=== PATIENT | female | born 1985 | race Caucasian/White ===

== ENCOUNTER 2022-01-31 19:48 | Emergency (ER) | payer OTHER, MEDICAID, SELFPAY ==
[2022-01-31 19:51] VITALS: BP 108/65; PULSE 108; RESP 20; TEMP 37.3; O2SAT 99
--- NOTE | 2022-01-31 20:02 | ED.GENADULT ---
HPI - General Adult General Time Seen by Provider: 20:02 Date Seen: 01/31/22 Chief complaint: Unspecified Complaint, Adult Stated complaint: SERIOUS HEAD PAIN,LOWER BACK/HIP PAIN Time Seen by Provider: 01/31/22 19:50 Source: patient, family, RN notes reviewed and old records reviewed Mode of arrival: wheelchair Limitations: no limitations History of Present Illness HPI narrative: This 36-year-old female is coming into the ER with symptoms starting this morning. She awoke feeling just really dizzy or lightheaded like she got up too fast but feels that way constantly since then. She has had a severe headache throughout her whole head, goes down into her neck. She also has low back pain and pain into her hips. She states she has not felt any more chilled than she normally does, has felt warm at times. Denies any visual changes, no rash, no cough, no sore throat, states she did not start having any nasal congestion until she had put on her mask here. She denies any abdominal pain, no nausea vomiting or diarrhea, no urinary changes. She has not had any tick bites or been anywhere where she thinks she would have been exposed. She has had no travel. She is unvaccinated for COVID. She did have COVID in August of 2021. There is no associated numbness tingling, incoordination, no motor weakness with this. She has tried Tylenol and ibuprofen today, warm packs, ice packs. Nothing is really given her much relief. Onset (ago): day(s) (Started today) Related Data Home Medications Medication Instructions Recorded Confirmed Tylenol 1,000 mg 01/31/22 clonazepam 01/31/22 ibuprofen 800 mg 01/31/22 phentermine 37.5 mg tablet mg 01/31/22 topiramate 25 mg tablet mg 01/31/22 venlafaxine 150 mg mg PO 01/31/22 capsule,extended release 24 hr Allergies Allergy/AdvReac Type Severity Reaction Status Date / Time acetaminophen [From Vicodin] Allergy itching/hiv Verified 01/31/22 19:55 es hydrocodone [From Vicodin] Allergy itching/hiv Verified 01/31/22 19:55 es Review of Systems Status of ROS: Reports: 10 or more systems reviewed and unremarkable except as noted in History and below PFSH PFSH Social History Smoking Status: Current every day smoker How often do you have a drink containing alcohol: monthly or less AUDIT-C Alcohol total score: 1 Non-prescribed substance use: marijuana (any form) Exam Const: Vital Signs, click to edit/add: Vital Signs - 24 hr 01/31/22 19:51 01/31/22 20:42 Temperature 99.1 F 99.9 F H Pulse Rate [Left P ulse Oximeter] 108 H Respiratory Rate 20 Blood Pressure [Le ft Upper Arm] 108/65 Pulse Oximetry 99 Documenting provider has reviewed patient's vital signs: yes Common normals: no apparent distress, average body habitus, oriented x3, no limitations, healthy appearing and alert General appearance: cooperative and other (Looks like she does not feel well but is certainly not in any distress) Orientation/consciousness: Yes awake Other: Cheeks appear flushed, she feels quite warm, had nursing staff redo an oral temperature and she is 99.9? F. HENMT: Common normals: normocephalic, head/scalp atraumatic, hearing grossly normal bilaterally, external ears normal, EAC's normal, TM's normal bilaterally, external nose normal, nasal mucous membranes and turbinates normal, moist oral mucous membranes, oropharynx normal and dentition normal Head and scalp: normocephalic and atraumatic Nose: external nose normal and nasal mucous membranes and turbinates normal External ear: external ears normal External auditory canal: EAC's normal Tympanic membrane: TM's normal bilaterally Eye: Common normals: PERRL, EOMs intact bilaterally, conjunctivae normal and no scleral icterus Conjunctiva: conjunctiva(e) normal Pupil: PERRL Neck & C-Spine: Common normals: full ROM, no lymphadenopathy, supple, no meningeal signs, no JVD and thyroid normal Thyroid: thyroid normal Resp: Common normals: normal respiratory effort, no retractions, no use of accessory muscles and clear to auscultation bilaterally Auscultation: clear to auscultation bilaterally Cardio: Common normals: no JVD, regular rhythm, S1 normal heart sound, S2 normal heart sound, no gallops, no clicks and no murmurs Rate: tachycardic Rhythm: regular rhythm Heart sounds: S1 normal and S2 normal GI: Common normals: Normal to inspection, nondistended, normoactive bowel sounds present, soft to palpation, non-tender, no hepatosplenomegaly and no masses Palpation: soft and no hepatosplenomegaly Extremity: Common normals: normal to inspection, full ROM, normal capillary refill, no calf tenderness and no pedal edema Neuro: Fowler Coma Scale: document GCS findings Fowler coma scale eye opening: Spontaneous (4) Diaz coma scale verbal response: Orientated (5) Diaz coma scale motor response: Obey commands (6) Fowler coma scale total score: 15 Common normals: oriented x3, CN's II-XII intact bilaterally, moves all extremities, no focal motor deficits and no sensory deficits noted Sensorium/orientation: awake and alert Meningeal signs: no meningeal signs Course Course Hospital Course: Reviewed with patient that I think she has symptoms from a developing infection. My a initial presumption would be that this is viral and possibly even COVID again. We will do a workup pain and look to differentiate viral versus bacterial and see if we can identify a source. I think her headache and her myalgias are part of the developing illness. She has nothing really focal to suggest a source at this point. We will start with lab work, place an IV, a.m. going to give her some IV fluids and give her 15 mg IV Toradol to see if this helps with some of her discomfort. She has no meningeal signs at this point in do not think we need to do any neuro imaging. We will await our labs as well as inflammatory markers, test for COVID and influenza. Besides the Toradol, will re-dose with acetaminophen as it has been awhile since she has taken anything orally. Reevaluation(s) Reevaluation #1: IA had ordered Reglan and Benadryl prior as the initial medicines did not help her at all. She is just starting to receive these. At this time, her COVID has come back positive. I was suspecting this as her white count was low and she had suppressed lymphocytes with this white count. I have reviewed with her that I personally have not found much to help people that are suffering from headaches with COVID. With the initial illness, it just seems like they need time and rest. I would recommend ongoing Tylenol and ibuprofen. Will see if the Reglan and Benadryl help her but I a am skeptical that this will benefit her with a headache from COVID. Time: 21:58 Vital Signs Vital signs: Initial Vital Signs Temperature 99.1 F 01/31/22 19:51 Temperature Source Temporal Artery Scan 01/31/22 19:51 Pulse Rate 108 H 01/31/22 19:51 Respiratory Rate 20 01/31/22 19:51 Blood Pressure 108/65 01/31/22 19:51 Blood Pressure Mean 79 01/31/22 19:51 Blood Pressure Position Sitting 01/31/22 19:51 Pulse Oximetry 99 01/31/22 19:51 Oxygen Delivery Method 01/31/22 19:51 Vital Signs Temperature 99.1 F 01/31/22 19:51 Pulse Rate 108 H 01/31/22 19:51 Respiratory Rate 20 01/31/22 19:51 Blood Pressure 108/65 01/31/22 19:51 Pulse Oximetry 99 01/31/22 19:51 Temperature 99.9 F H 01/31/22 20:42 Pulse Rate 108 H 01/31/22 19:51 Respiratory Rate 20 01/31/22 19:51 Blood Pressure 108/65 01/31/22 19:51 Pulse Oximetry 99 01/31/22 19:51 Medical Decision Making Lab Data Labs: Lab Results 01/31/22 01/31/22 01/31/22 Range/Units 20:30 20:30 20:30 WBC 3.62 L (4.50-11.00) K/uL RBC 4.45 (4.00-5.20) m/uL Hgb 13.2 (12.0-16.0) gm/dL Hct 39.8 (33.0-51.0) % MCV 89 (80-100) fL MCH 30 (26-34) pg MCHC 33 (32-36) gm/dL RDW Coeff of Alicia 13.1 (11.5-15.5) % Plt Count 240 (140-440) K/uL Neut % (Auto) 67.3 (42.0-72.0) % Lymph % (Auto) 10.8 L (20-44) % [place] % (Auto) 20.7 H (0.0-11.0) % Eos % (Auto) 0.3 (0.0-7.0) % Baso % (Auto) 0.6 (0.0-3.0) % Neut # (Auto) 2.40 (1.7-7.0) K/uL Lymph # (Auto) 0.40 L (0.90-2.90) K/uL [place] # (Auto) 0.70 (0.00-0.90) K/UL Eos # (Auto) 0.00 (0.00-0.50) K/uL Baso # (Auto) 0.00 (0.00-0.30) K/uL Abs Immat Gran (auto) 0.01 (0.00-0.30) K/uL ESR 15 (2-20) mm/hr Sodium 134 L (135-149) mmol/L Potassium 3.2 L (3.6-5.1) mmol/L Chloride 103 (96-114) mmol/L Carbon Dioxide 21 (20-32) mmol/L BUN 10 (5-24) mg/dL Creatinine 0.7 (0.5-1.5) mg/dL Estimated Creat Clear 83.84 Estimated GFR 115 ml/min Glucose 92 (60-115) mg/dL Lactate (0.5-1.9) mmol/L Calcium 8.8 (8.4-10.6) mg/dL C-Reactive Protein 3.3 H (0.5-1.0) mg/dL SARS-CoV-2 (PCR) (Negative) Influenza Type A (PCR) (Negative) Influenza Type B (PCR) (Negative) 01/31/22 01/31/22 Range/Units 20:30 20:30 WBC (4.50-11.00) K/uL RBC (4.00-5.20) m/uL Hgb (12.0-16.0) gm/dL Hct (33.0-51.0) % MCV (80-100) fL MCH (26-34) pg MCHC (32-36) gm/dL RDW Coeff of Alicia (11.5-15.5) % Plt Count (140-440) K/uL Neut % (Auto) (42.0-72.0) % Lymph % (Auto) (20-44) % [place] % (Auto) (0.0-11.0) % Eos % (Auto) (0.0-7.0) % Baso % (Auto) (0.0-3.0) % Neut # (Auto) (1.7-7.0) K/uL Lymph # (Auto) (0.90-2.90) K/uL [place] # (Auto) (0.00-0.90) K/UL Eos # (Auto) (0.00-0.50) K/uL Baso # (Auto) (0.00-0.30) K/uL Abs Immat Gran (auto) (0.00-0.30) K/uL ESR (2-20) mm/hr Sodium (135-149) mmol/L Potassium (3.6-5.1) mmol/L Chloride (96-114) mmol/L Carbon Dioxide (20-32) mmol/L BUN (5-24) mg/dL Creatinine (0.5-1.5) mg/dL Estimated Creat Clear Estimated GFR ml/min Glucose (60-115) mg/dL Lactate 1.3 (0.5-1.9) mmol/L Calcium (8.4-10.6) mg/dL C-Reactive Protein (0.5-1.0) mg/dL SARS-CoV-2 (PCR) POSITIVE SARS-CoV-2 A (Negative) Influenza Type A (PCR) Negative PCR FLU A (Negative) Influenza Type B (PCR) Negative PCR FLU B (Negative) Critical Care Time Critical Care Time Critical Care Time: No Discharge Plan Discharge Clinical Impression: COVID-19, Headache associated with infection, Myalgia due to viral infection Patient Disposition: Home, Self-Care Condition: Stable Instructions: COVID-19 (Coronavirus Disease 2019) (ED), COVID-19: Slow the Coronavirus Spread (ED) Additional Instructions: Stay hydrated, try to drink plenty of fluids. Tylenol and ibuprofen as needed per bottle directions for your symptoms. Quarantine as per CDC guidelines or and tell you are improving from this illness. Review handouts, if you believe you are worsening, have any respiratory issues such as difficulty breathing or shortness of breath, I do need to seek re-evaluation. Activity Level: Activity as Tolerated Discharge Diet: Regular Prescriptions: No Action venlafaxine 150 mg capsule,extended release 24hr PO 0RF Label Comments: TAKE 1 CAPSULE BY MOUTH ONCE DAILY topiramate 25 mg tablet 0RF phentermine 37.5 mg tablet 0RF Label Comments: TAKE 1 & 1/2 (ONE & ONE-HALF) TABLETS BY MOUTH ONCE DAILY clonazepam 0RF Tylenol 1,000 mg 0RF ibuprofen 800 mg 0RF Follow Up/Referrals: Kane Domingo MD [Primary Care Provider] - Stand Alone Forms: [facility] Info Instructions
[2022-01-31] MEDS: KETOROLAC 15 MG/ML inj IVP (20:31)
[2022-01-31] MEDS: 0.9 % SODIUM CHLORIDE 1000 ml 1,000 ML 500 ML IV (20:31)
[2022-01-31 20:42] VITALS: TEMP 37.7
[2022-01-31] MEDS: ACETAMINOPHEN 500 MG TABLET 1000 MG PO (20:42)
[2022-01-31 20:55] LABS: Basophils Percent Auto 0.6 % (0.0-3.0); Eosinophils Percent Auto 0.3 % (0.0-7.0); Hematocrit 39.8 % (33.0-51.0); Hemoglobin* 13.2 gm/dL (12.0-16.0); Immature Granulocytes Abs Auto 0.01 K/uL (0.00-0.30); Lymphocytes Percent Auto 10.8 % (20-44); Mean Corpuscular HGB Conc 33 gm/dL (32-36); Mean Corpuscular Hemoglobin 30 pg (26-34); Mean Corpuscular Volume 89 fL (80-100); Monocytes Percent Auto 20.7 % (0.0-11.0); Neutrophils Percent Auto 67.3 % (42.0-72.0); Platelet Count* 240 K/uL (140-440); RDW Coefficient of Variation % 13.1 % (11.5-15.5); Red Blood Count 4.45 m/uL (4.00-5.20); White Blood Count* 3.62 K/uL (4.50-11.00)
[2022-01-31 21:03] LABS: Lactate* 1.3 mmol/L (0.5-1.9)
[2022-01-31 21:05] LABS: Slide Review Reflex No
[2022-01-31 21:17] LABS: Chloride* 103 mmol/L (96-114); Potassium* 3.2 mmol/L (3.6-5.1); Sodium* 134 mmol/L (135-149)
[2022-01-31 21:20] LABS: Carbon Dioxide* 21 mmol/L (20-32); Creatinine* 0.7 mg/dL (0.5-1.5); Est. Creatinine Clearance* 83.84; Estimated Glomerular Filt Rate 115 ml/min
[2022-01-31 21:21] LABS: Blood Urea Nitrogen* 10 mg/dL (5-24); Calcium* 8.8 mg/dL (8.4-10.6); Glucose* 92 mg/dL (60-115)
[2022-01-31 21:26] LABS: C Reactive Protein* 3.3 mg/dL (0.5-1.0)
[2022-01-31 21:44] LABS: PCR FLU A Negative PCR FLU A (Negative); PCR FLU B Negative PCR FLU B (Negative)
[2022-01-31 21:48] LABS: Erythrocyte SedimentationRate* 15 mm/hr (2-20)
[2022-01-31 21:49] LABS: SARS PCR* POSITIVE SARS-CoV-2 (Negative)
[2022-01-31] MEDS: diphenhydrAMINE 50 MG/ML inj 25 MG IVP (21:50)
[2022-01-31] MEDS: METOCLOPRAMIDE HCL 10 MG in 0.9 % SODIUM CHLORIDE 100 ml 100 ML 306 MG IVPB (21:51)
[2022-01-31 22:15] VITALS: BP 145/62; PULSE 80; RESP 18; TEMP 37.2; O2SAT 98
== END 2022-01-31 22:36 | disposition home or self-care (01) ==
PROVIDERS: Emergency Provider Family Medicine; PCP Family Medicine
DX: U07.1 COVID-19 (principal); R51.9 Headache, unspecified
CPT/HCPCS: 36415; 80048; 81001; 83605; 85025; 85651; 86140; 87502; 87635; 96365; 96375; 99284; A9270; J1200; J1885; J2765; J7030

== ENCOUNTER 2022-02-16 20:26 | Emergency (ER) | payer OTHER, MEDICAID, SELFPAY ==
[2022-02-16] VITALS (8 sets, daily range): BP systolic 119–151; BP diastolic 74–96; PULSE 69–88; RESP 16–20; TEMP 36.3; O2SAT 100; BMI 29.9
--- NOTE | 2022-02-16 20:43 | CRLHL7_ITS ---
For Patients: As a result of the Century Cures Act, medical imaging exams and procedure reports are released immediately into your electronic medical record. You may view this report before your referring provider. If you have questions, please contact your health care provider. DATE: 02/16/2022. CLINICAL HISTORY: Right-sided weakness. TECHNIQUE: Standard helical CT image acquisition through the head and neck was performed after intravenous contrast bolus enhancement. Multiplanar reconstructed images were performed and interpreted. COMPARISON: None available. FINDINGS: The origins of the great vessels from the aortic arch are patent. The origins of the right and left vertebral arteries are patent. The common carotid arteries are patent. No significant luminal stenoses of the proximal internal carotid arteries by NASCET criteria. The more distal cervical segments of the internal carotid arteries are patent. The cervical segments of the vertebral arteries are patent. No intracranial proximal large vessel occlusion or flow-limiting luminal stenosis. No evidence of cerebral aneurysm or findings to suggest an arteriovenous shunting lesion. IMPRESSION: 1. Normal CT angiogram of the head. 2. Normal CT angiogram of the neck. Please note that all CT scans at this facility use dose modulation, iterative reconstruction, and/or weight-based dosing when appropriate to reduce radiation dose to as low as reasonably achievable. Dictated by Brandon Blake MD @ 02/17/2022 11:20:50 AM (Electronically Signed)
--- NOTE | 2022-02-16 20:44 | ED_ITS ---
HPI - General Adult General Chief complaint: Neuro Symptoms/Altered Deficit Stated complaint: Can't move R side/talk Time Seen by Provider: 02/16/22 20:38 History of Present Illness HPI narrative: Pt is a 36 year old woman who presented to the Urgent Care earlier today with a hoarse voice. Workup including soft tissue neck x ray and lab work was normal. The patient developed tingling of her right side during her stay in urgent care today and by the time the visit was completed, she had lost most of her strength in her right arm and leg. Unable to walk. No similar symptom. No neck pain. Related Data Home Medications Medication Instructions Recorded Confirmed clonazepam 01/31/22 phentermine 37.5 mg tablet 37.5 mg 01/31/22 02/16/22 topiramate 25 mg tablet 25 mg 01/31/22 02/16/22 venlafaxine 150 mg 150 mg PO 01/31/22 02/16/22 capsule,extended release 24 hr Allergies Allergy/AdvReac Type Severity Reaction Status Date / Time acetaminophen [From Vicodin] Allergy itching/hiv Verified 02/16/22 20:46 es hydrocodone [From Vicodin] Allergy itching/hiv Verified 02/16/22 20:46 es Review of Systems Status of ROS: Reports: 10 or more systems reviewed and unremarkable except as noted in History and below PFSH PFS Social History Smoking Status: Current every day smoker What tobacco products do you use: cigarettes How often do you have a drink containing alcohol: 2-4 times a month AUDIT-C Alcohol total score: 2 Non-prescribed substance use: marijuana (any form) Exam Narrative: Exam Narrative: EXAM GENERAL: Patient appears comfortable and well. EYES: No scleral icterus. LYMPH: No supraclavicular or cervical lymphadenopathy. SKIN: Visible skin seen during exam normal or with benign process only. EXT: No dependent lower extremity pedal edema. HEART: Regular rate and rhythm with no murmurs, rubs, or gallops. LUNGS: Clear to auscultation bilaterally with no crackles or wheezes. ABD: Soft, non tender, non distended. PSYCH: Good eye contact, speech is not pressured. Neuro: Questionable drooping of the lower right face. 1/5 strenght in the right upper and lower extremity. Absent babinski. Const: Vital Signs, click to edit/add: Vital Signs - 24 hr 02/16/22 20:39 02/16/22 21:49 02/16/22 22:03 Temperature 97.4 F L Pulse Rate [Right Pulse Oximeter] 80 79 Pulse Rate [Right] 69 Respiratory Rate 16 16 Blood Pressure [Le ft Upper Arm] 123/83 119/81 Pulse Oximetry 100 100 Oxygen Delivery Me thod Room Air Room Air 02/16/22 22:06 02/16/22 22:30 02/16/22 22:37 Temperature Pulse Rate [Right Pulse Oximeter] 74 75 Pulse Rate [Right] 78 Respiratory Rate 20 18 Blood Pressure [Le ft Upper Arm] 119/74 123/74 Pulse Oximetry 100 100 Oxygen Delivery Me thod Room Air Room Air 02/16/22 23:00 Temperature Pulse Rate [Right Pulse Oximeter] 88 Pulse Rate [Right] Respiratory Rate 20 Blood Pressure [Le ft Upper Arm] 151/96 H Pulse Oximetry 100 Oxygen Delivery Me thod Room Air Course Course Hospital Course: CTA head and neck and Unenhanced CT ordered. Reevaluation(s) Reevaluation #1: PATIENT RE-EVALUATED NO CHANGE IN SYMPTOMS. NO BEDS AVAILABLE AT [facility]. Time: 22:59 Consultations Consultation #1: Dr Morgan [facility] at [facility] recommends transfer for MRI and consultation Vital Signs Vital signs: Initial Vital Signs Temperature 97.4 F L 02/16/22 20:39 Temperature Source Temporal Artery Scan 02/16/22 20:39 Pulse Rate 80 02/16/22 20:39 Pulse Rhythm 02/16/22 20:39 Respiratory Rate 16 02/16/22 20:39 Blood Pressure 123/83 02/16/22 20:39 Blood Pressure Mean 96 02/16/22 20:39 Blood Pressure Position Supine 02/16/22 20:39 Pulse Oximetry 100 02/16/22 20:39 Oxygen Delivery Method 02/16/22 20:39 Vital Signs Temperature 97.4 F L 02/16/22 20:39 Pulse Rate 80 02/16/22 20:39 Respiratory Rate 16 02/16/22 20:39 Blood Pressure 123/83 02/16/22 20:39 Pulse Oximetry 100 02/16/22 20:39 Oxygen Delivery Method 02/16/22 20:39 Temperature 97.4 F L 02/16/22 20:39 Pulse Rate 88 02/16/22 23:00 Respiratory Rate 20 02/16/22 23:00 Blood Pressure 151/96 H 02/16/22 23:00 Pulse Oximetry 100 02/16/22 23:00 Oxygen Delivery Method 02/16/22 23:00 Medical Decision Making MDM Narrative Medical decision making narrative: Differential includes CVA, Cord Injury, Migraine, Partial Seizure and MS Discharge Plan Discharge Clinical Impression: Progressive focal motor weakness Patient Disposition: [facility] Discharge Location: [facility] Condition: Stable Prescriptions: No Action venlafaxine 150 mg capsule,extended release 24hr 150 mg PO Label Comments: TAKE 1 CAPSULE BY MOUTH ONCE DAILY topiramate 25 mg tablet 25 mg phentermine 37.5 mg tablet 37.5 mg Label Comments: TAKE 1 & 1/2 (ONE & ONE-HALF) TABLETS BY MOUTH ONCE DAILY clonazepam Follow Up/Referrals: Kane Domingo MD [Primary Care Provider] - Stand Alone Forms: [facility] Info Instructions
--- NOTE | 2022-02-16 21:30 | CRLHL7_ITS ---
For Patients: As a result of the Cures Act, medical imaging exams and procedure reports are released immediately into your electronic medical record. You may view this report before your referring provider. If you have questions, please contact your health care provider. INDICATION: Right-sided weakness. COMPARISON: None. TECHNIQUE: Noncontrast CT head. FINDINGS: Normal brain parenchymal morphology. No acute intracranial hemorrhage, acute infarct, focal edema, mass effect, or fracture. No midline shift. No abnormal ventricular dilatation. Normal calvarium and skull base. Visualized paranasal sinuses and mastoid air cells are clear. Normal orbits bilaterally. IMPRESSION: 1. No acute intracranial abnormality. 2. Normal brain parenchymal morphology Please note that all CT scans at this facility use dose modulation, iterative reconstruction, and/or weight-based dosing when appropriate to reduce radiation dose to as low as reasonably achievable. Dictated by Koby Crane MD @ 02/16/2022 9:53:09 PM (Electronically Signed)
--- NOTE | 2022-02-16 21:51 | ED.NURSE ---
took children to a friends house. is tearful and unable to speak. does communicate with her i phone to text the words. awaiting cta results. dr zacarias aware and believes this is possible an atypical migraine. will continue to assess neuros. otf that she is unable to move her r side like they weigh 100 lbs.. r side is flacid. id.
--- NOTE | 2022-02-16 22:33 | ED.NURSE ---
[facility] stroke neurology called - dr horvath will call back to dr zacarias. no improvement in neuro status r side arm and leg are flaccid.
--- NOTE | 2022-02-16 22:55 | ED.NURSE ---
dr horvath spoke to dr zacarias. [facility] has limited bed avail. aware that she needs an mri betty. neuro consult.
--- NOTE | 2022-02-16 23:09 | ED.NURSE ---
awaiting call from [facility] for transport. was tearful and crying. is supportive. r side continues to be flaccid. is alert and continues to have difficulty talking. does understand all interactions.
--- NOTE | 2022-02-16 23:17 | ED.NURSE ---
had a hysterctomy. no test is warranted.
[2022-02-17] VITALS: BP 118/84; PULSE 82; RESP 20; O2SAT 100
--- NOTE | 2022-02-17 00:21 | ED.NURSE ---
was able to urinate on the bedpan. voided ~approx 350 ml of clear yellow urine. r side continues to be flaccid.
[2022-02-17 00:30] VITALS: BP 124/87; PULSE 82; O2SAT 100
--- NOTE | 2022-02-17 00:45 | PC.NURSE ---
Report to RN at [facility], patient will transport via EMS to unit [id number] room #53
[2022-02-17 00:48] VITALS: PULSE 91
--- NOTE | 2022-02-17 00:48 | PC.NURSE ---
Call for transport to [facility].
--- NOTE | 2022-02-17 01:15 | PC.NURSE ---
Patient left ER via EMS. Call to [facility] with heads up of patient departure.
== END 2022-02-17 01:18 | disposition short-term general hospital (02) ==
PROVIDERS: Emergency Provider Internal Medicine; PCP Family Medicine
DX: R53.1 Weakness (principal); R29.2 Abnormal reflex
CPT/HCPCS: 70450; 70496; 70498; 99283; 99284; Q9967

== ENCOUNTER 2022-02-17 01:11 | Outpatient (CLI) | payer OTHER, MEDICAID, SELFPAY | END 2022-02-17 01:12 | disposition home or self-care (01) | LOC: AMB 03-01 18:51 | PROVIDERS: PCP Family Medicine; Visit Provider Family Medicine | DX: R53.1 Weakness (principal) | CPT/HCPCS: A0425; A0428 ==

== ENCOUNTER 2022-02-26 13:37 | Outpatient (CLI) | payer OTHER, MEDICAID, SELFPAY ==
[2022-02-28 13:55] LABS: Rheumatoid Factor < 10 IU/mL (0-14)
[2022-03-01 05:31] LABS: Anti-Nuclear Ab(ANA)IgG ELISA None Detected (None Detected)
== END 2022-02-26 13:38 | disposition home or self-care (01) ==
PROVIDERS: PCP Family Medicine; Visit Provider Internal Medicine
DX: R53.1 Weakness (principal)
CPT/HCPCS: 86039; 86431

== ENCOUNTER 2022-04-13 12:15 | Outpatient (RCR) | payer OTHER, MEDICAID, SELFPAY ==
--- NOTE | 2022-03-05 17:25 | SLP.EVAL ---
Please review, sign and return. Thank you Alisa Palencia, Speech Pathologist DECORATING INSPECTOR Mitul COLLAZO Eval Start: 03/05/22 13:48 Freq: Status: Active Protocol: Document 03/05/22 13:48 RUPALI (Rec: 03/05/22 14:58 S [id number]) E-signed By Alisa Palencia, HAILEY, DECORATING INSPECTOR DECORATING INSPECTOR System Review History & Reason For Referral Type of Speech Evaluation Communication Evaluation Rehabilitation Order Evaluation and Treat Date of Order 02/23/22 Reason for Referral Difficulty speaking Onset Date Of Patient's Problem 02/16/22 Medical Diagnosis Functional Neurological Disorder Treatment Diagnosis Dysarthria/dysfluency Hearing Information Hearing Status Within normal Vision Information Vision Status Within normal Patient Orientation Orientation & Mental Status Within normal DECORATING INSPECTOR Initial Assessment/POC Subjective Information Subjective/Pain Comment Patient ambulated independently to the therapy room. She is pleasant and cooperative. Assessment & Impression Assessment/Impression Patient is a 36 year old female referred for a speech- language evaluation and treatment. On Feb 16 patient went to the ER with (R) neck pain and loss of voice. While in the ER she had a progression of upper and lower extremity paralysis and inability to speak. She was transferred to [place] and spent 4 days there. Initially she was unable to say anything . Now she is able to talk but her speech is very dysfluent. 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 LANGUAGE Patient's receptive and expressive language abilities are within normal limits. SWALLOW Patient able to swallow without signs of aspiration. SPEECH Patient exhibits moderate dysfluent speech in the form of blocks and repetitions. IMPRESSIONS AND RECOMMENDATIONS Patient exhibits moderately dysfluent speech in the form of blocks and repetitions. Recommend direct outpatient speech therapy to learn strategies to decrease dysfluencies. Functional Limitations & Outcome/Goals Goals/Functional Outcomes ELECTRICIAN'S ASSISTANT GOAL Patient will increase fluent speech to allow return to work . SHORT TERM GOAL 1)Patient will be able to complete short automatic phrases with fluent speech with 90% accuracy. 2)Patient will be able to provide spontaneous answers to questions with fluent speech 90% of the time. 3)Patient will be able to read sentences and paragraphs with fluent speech 90% of the time . 4)Patient will be able to converse with fluent speech 90 % of the time. Intervention Plan & Frequency Intervention Plan Direct outpatient speech therapy. Duration 10+ Weeks Frequency/Duration 1-2 times a week Coordination Of Plan Has Been Patient Communicated With Discharge Plan Patient Will be Discharged from Therapy Completion of LTG(s),Skills Plateau,Independently Progressing Therapist Signature & License # I Certify That Therapy Services Provided, Therapy Plan Established Therapist Signature & License Number Alisa Palencia, [facility]-DECORATING INSPECTOR, # [id number] Certification Date Date of First Visit for Therapy 03/05/22 Recertification Due Date 06/03/22 Physician Signature Signature of Physician Indicates Treatment Plan,Certification Plan,Medically Needed Services Physician Signature & Date Required Please Sign/Date Here Speech/Language Pathology Billing Units Billing Units Eval of Speech Fluency 1
== END 2022-08-07 14:56 | disposition home or self-care (01) ==
PROVIDERS: PCP Family Medicine; Visit Provider Family Medicine
DX: R47.02 Dysphasia; Z51.89 Encounter for other specified aftercare
CPT/HCPCS: 92507; 92521; 97112; 97163

== ENCOUNTER 2022-07-03 14:56 | Outpatient (CLI) | payer OTHER, MEDICAID, SELFPAY ==
[2022-07-03 15:52] LABS: Strep A DNA Probe* NOT DETECTED (Not Detectd)
== END 2022-07-03 14:57 | disposition home or self-care (01) ==
PROVIDERS: PCP Family Medicine; Visit Provider Family Medicine
DX: Z20.822 Contact with and (suspected) exposure to COVID-19 (principal); R50.9 Fever, unspecified
CPT/HCPCS: 87651

== ENCOUNTER 2022-12-25 10:49 | Outpatient (CLI) | payer BC, MEDICAID, SELFPAY ==
--- NOTE | 2022-12-25 09:45 | CRLHL7_ITS ---
For Patients: As a result of the Cures Act, medical imaging exams and procedure reports are released immediately into your electronic medical record. You may view this report before your referring provider. If you have questions, please contact your health care provider. DIGITAL DIAGNOSTIC BILATERAL MAMMOGRAM USING TOMOSYNTHESIS AND COMPUTER-AIDED DETECTION LEFT BREAST ULTRASOUND CLINICAL HISTORY: LEFT breast pain. COMPARISON: 04/05/2019. TECHNIQUE: Digital BILATERAL mammogram in five projections. Tomosynthesis and CAD utilized. Real-time ultrasound imaging of LEFT breast with imaging documentation. BREAST COMPOSITION: There are areas of scattered fibroglandular density. FINDINGS: Mammogram images demonstrate fibroglandular tissue. No architectural distortion or suspicious mass. No adenopathy or suspicious calcifications. Targeted LEFT breast ultrasound performed in the area of concern at 1 o`clock 12 cm from the nipple. Normal fibroglandular tissue is present. No fibrocystic change or mass. IMPRESSION: Normal BILATERAL mammograms and normal targeted LEFT breast ultrasound. No evidence of malignancy. RECOMMENDATIONS: Age-appropriate screening mammography. Results and recommendations discussed with the patient. BI-RADS Category 1: Negative A lay language report of this examination will be provided to the patient. Dictated by Jamey Rolbes MD @ 12/25/2022 12:21:58 PM yojanaj/Dictated by: Jamey Robles MD @ 12/25/2022 12:21:00 PM (Electronically Signed)
--- NOTE | 2022-12-25 10:15 | CRLHL7_ITS ---
For Patients: As a result of the Century Cures Act, medical imaging exams and procedure reports are released immediately into your electronic medical record. You may view this report before your referring provider. If you have questions, please contact your health care provider. PLEASE SEE BILATERAL DIAGNOSTIC MAMMOGRAM OF SAME DAY. CRL:dedrick TAURUS/Dictated by: Jamey Robles MD @ 12/25/2022 12:22:00 PM (Electronically Signed)
== END 2022-12-25 10:50 | disposition home or self-care (01) ==
LOC: MAMMO 10:50
PROVIDERS: PCP Family Medicine; Visit Provider Obstetrics & Gynecology
DX: N63.20 Unspecified lump in the left breast, unspecified quadrant (principal); N64.4 Mastodynia
CPT/HCPCS: 76642; 77066; G0279

== ENCOUNTER 2023-05-07 10:20 | Outpatient (CLI) | payer BC, SELFPAY | END 2023-05-07 10:21 | disposition home or self-care (01) | LOC: NFLDREF 05-10 12:46 | PROVIDERS: PCP Family Medicine; Visit Provider Family Medicine | DX: Z01.818 Encounter for other preprocedural examination (principal) | CPT/HCPCS: 99001 ==

== ENCOUNTER 2024-10-20 09:34 | Outpatient (CLI) | payer BC, SELFPAY | END 2024-10-20 09:35 | disposition home or self-care (01) | LOC: NFLDREF 10-24 01:25 | PROVIDERS: PCP Family Medicine; Referring Provider Family Medicine; Visit Provider Family Medicine | DX: Z13.6 Encounter for screening for cardiovascular disorders (principal); Z13.1 Encounter for screening for diabetes mellitus | CPT/HCPCS: 80061; 82947 ==

== ENCOUNTER 2025-03-11 20:21 | Emergency (ER) | payer BC, SELFPAY ==
--- OUTSIDE RECORDS SUMMARY | 2020-07-18 09:47 | XMS_ITS | Continuity of Care Document ---
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 Role Phone Elias OZUNA, Adela Unavailable Unavailable Allergies, Adverse Reactions, Alerts Substance Reaction Status Criticality HYDROCODONE BITARTRATE HivesHives Active No In formation acetaminophen HivesHives Active No Information Medications Medication Instructions Dosage Effective Dates (start - stop) Status Comments escitalopram 20 mg tablet take 1 tablet by oral route every day 20 MG - Active ALOE VERA (unknown strength) Not Available - Active VITAMIN D3 (unknown strength) take 1 tablet by oral route every day Not Available - Active Herbal Medications/Suppleme nts unknown - Active PROBIOTIC (unknown strength) take 1 capsule by oral route every day Not Available - Active MELATONIN (unknown strength) take 1 tablet by oral route every bedtime Not Available - Active Multivitamin unknown Oral - Active HAIR, SKIN AND NAILS (unknown strength) Not Available - Active Procedures Procedure Date Established Level 3 or 15-24 min 2019 Colonoscopy Flex; W/bx 1/mx Level Iv-surg Path Gross/micro 20 New Level 4 or 45-59 min Advance Directives Directive Yes / No Effective Date File Name No Information Encounters Encounter Description Practice Location Reason(s) For Visit Diagnoses Date Provider Providers Copied on Encounter [facility], [address] [address], [place], [id number], [place] tel:[phone] [facility] No Information 1 Elias Chapman. [address], [id number], [place]. tel:[phone] Established Level 3 or 15-24 min [facility], [address] [address], [place], [id number], [place] tel:[phone] [facility] GI Symptoms or Concerns (chief complaint) Change in bowel habitsDiarrhea , unspecifiedHea rtburnUpper abdominal pain 0 Elias OZUNA Adela. [address], [id number], [place]. tel:[phone] Referring Provider: Vladimir GOMEZ, [address] [place], [address]. tel:[phone] [facility], [address] [address], [place], [id number], [place] tel:[phone] [facility] Diarrhea, unspecified typeFamily history of colon cancer in fatherInternal hemorrhoidsDiv erticulosis of colonFamily history of colonic polypsUnspecif ied abdominal painFamily history of malignant neoplasm of digestive organsDiarrhea , unspecified Nov- 0 0 No Information Referring Provider: Vladimir GOMEZ, [address], [place], [address]. tel:[phone] New Level 4 or 45-59 min [facility], [address] [address], [place], [id number], [place] tel:[phone] [facility] GI Symptoms or Concerns (chief complaint) HeartburnUpper abdominal painChange in bowel habitsFrequent stoolsHx of colonic polyps 0 Elias Chapman. [address] [facility], [address], [id number], [place]. tel:[phone] Referring Provider: Vladimir GOMEZ, [address] [place], [address]. tel:[phone] [facility], [address] [address], [place], [id number], tel:[phone] No Information Apr- 0 No Information Referring Provider: Kane Domingo MD, [address] [place], [address]. tel:[phone] Family History Family Member Type Diagnosis Age At Onset Father Problem (finding) GERD Father Problem (finding) diverticulitis of colon Brother Problem (finding) gallbladder disease Mother Problem (finding) Thyroid disorder Daughter Problem (finding) Alive and well Father Problem (finding) Colon polyps Father Problem (finding) cancer of colon Immunizations Vaccine Date Status Comments Afluria Qd administered Note: [facility] bi-directional interface ; Source: Other Registry Afluria Qd administered Note: [facility] bi-directional interface ; Source: Other Registry tetanus toxoid, reduced diphtheria toxoid, and acellular pertussis vaccine, adsorbed administered Note: [facility] b i-directional interface ; Source: Other Registry Afluria Qd administered Note: [facility] bi-directional interface ; Source: Other Registry Afluria Qd administered Note: [facility] bi-directional interface ; Source: Other Registry tetanus toxoid, reduced diphtheria toxoid, and acellular pertussis vaccine, adsorbed administered Note: [facility] b i-directional interface ; Source: Other Registry Afluria Qd administered Note: [facility] bi-directional interface ; Source: Other Registry Influenza, seasonal, injecta ble, preservative free administered Note: [facility] bi-direct ional interface ; Source: Other Registry tetanus toxoid, reduced diphtheria toxoid, and acellular pertussis vaccine, adsorbed administered Note: [facility] b i-directional interface ; Source: Other Registry measles, mumps and rubella v irus vaccine administered Note: [facility] bi-direct ional interface ; Source: Other Registry poliovirus vaccine, inactivated administe red Note: [facility] bi- directional interface ; Source: Other Registry Havrix administered Note: [facility] bi-d irectional interface ; Source: Other Registry Havrix administered Note: [facility] bi-d irectional interface ; Source: Other Registry human papilloma virus vaccin e, quadrivalent administered Note: [facility] bi-direct ional interface ; Source: Other Registry human papilloma virus vaccin e, quadrivalent administered Note: [employer] bi-direct ional interface ; Source: Other Registry tetanus and diphtheria toxoi ds, adsorbed, preservative free, for adult use (5 Lf of tetanus toxoid and 2 Lf of diphtheria toxoid) administered Note: [employer] bi-direct ional interface ; Source: Other Registry human papilloma virus vaccin e, quadrivalent administered Note: [facility] bi-direct ional interface ; Source: Other Registry Engerix-B administered Note: [facility] bi-d irectional interface ; Source: Other Registry diphtheria, tetanus toxoids and pertussis vaccine administered Note: [facility] bi-direct ional interface ; Source: Other Registry diphtheria, tetanus toxoids and pertussis vaccine administered Note: [employer] bi-direct ional interface ; Source: Other Registry diphtheria, tetanus toxoids and pertussis vaccine administered Note: [employer] bi-direct ional interface ; Source: Other Registry diphtheria, tetanus toxoids and pertussis vaccine administered Note: [facility] bi-direct ional interface ; Source: Other Registry Payers Payer name Insurance type Covered republican ID Authoriza tion(s) No Information Social History Type Description Quantity Date Captured Comments Alcohol Use Details Unknown Caffeine Use Details Unknown Tobacco Use Status Smoking Status No Information Sex Female Chief Complaint And Reason For Visit No Information Reason For Referral Reason For Referral No Information Plan Of Treatment Date Type Action Status Referral Ordered: Ultrasound Gallbladder Appointment date/timeframe: 07/16/2020 ordered Referral Ordered: Stool Test Panel, Comprehensive Appointment date/timeframe: 05/24/2020 ordered Referral Ordered: CT Abdomen And Pelvis WITH Contrast Appointment date/timeframe: 05/24/2020 ordered History Of Present Illness Encounter Date Complaint History Of Prese nt Illness GI Symptoms or Concerns This is a 34-year-old female with a history of acid reflux, who is seen in followup today after completing workup for multiple GI symptoms including abdominal pain, change in bowel habits, gas, bloating, and intermittent nausea. She is seen via [facility] appointment. Verbal consent was obtained prior to our discussion. Recent workup has included an abdominal CT scan which showed a 1.6 cm hiatal hernia, evidence of appendectomy and hysterectomy. No abnormal findings in the small intestine or colon.She underwent a colonoscopy on 06/10/2020, which showed sigmoid diverticulosis, internal hemorrhoids, otherwise normal exam. Random colon biopsies were normal.Prior to our last visit, she had an EGD through [facility] on March 19, 2020, which showed an irregular Z-line, which was biopsied, small hiatal hernia, normal-appearing stomach, and normal-appearing duodenum. Gastric biopsies and small intestine biopsies were normal. The biopsies of the junction between the esophagus and stomach showed changes consistent with reflux esophagitis. She was on omeprazole 20 mg b.i.d., but this was not helping.CBC with differential in February 2020 showed hemoglobin 12.4, ESR 18, WBC 8.1, and normal LFTs.Colonoscopy in 2014 showed polyps. She was told to have repeat colonoscopy in 3 to 5 years.On review of her symptoms, she began to experience abdominal pain, reflux, and change in her bowel habits 6 to 7 months ago. The pain is above her belly button, under the ribs on either side, can be throughout the upper abdomen. It is 5/10 most of the time, can get up to a 10/10. It is present on a daily basis, fairly constant, but the intensity varies. Eating does not affect the pain. Bowel movements do not affect the pain. She has not had solid stool in 7 months. Stools are mushy. On a good day, she may have 3, on a bad day up to 6. There is some bright red blood, which she assumed was from hemorrhoids. She has significant amount of gas and bloating and intermittent nausea. She has tried intermittent Beano.She had a solid stool after her colonoscopy, but soon thereafter, the stools returned to mushy consistency. She is still having 3 to 6 bowel movements per day. Reflux has not improved with the Protonix. She has had 3 episodes of regurgitation in the last month, continued heartburn. She started taking probiotics, which has been helping a little bit as far as her pain over last month. She continues to have bloating. Pain is down to 4/10. Stools are soft, but she is not having diarrhea. She often can feel full. She has early satiety with meals. Eating even a little bit can set the cramping off. She has not completed the stool test yet.PAST MEDICAL HISTORYThis includes thyroid disease, PCOS, section, total hysterectomy, and appendectomy.FAMILY HISTORYThere is a family history of colon cancer in her father, diagnosed at 53, grandmother diagnosed in her 70s. Gallbladder disease in her brother.SOCIAL HISTORYShe is a current smoker. GI Symptoms or Concerns This is a 34-year-old female with a history of acid reflux who is seen today for evaluation of multiple GI symptoms including abdominal pain, change in her bowel habits, gas, bloating, and intermittent nausea. She is seen at the request of Dr. Domingo. She is seen via [facility] clinic appointment. Verbal consent was obtained prior to our discussion.The patient began to experience symptoms of abdominal pain, persistent reflux, change in bowel habits, 6 to 7 months ago. She has had reflux symptoms for years. She has been on omeprazole 20 mg b.i.d. without any improvement. She had an upper endoscopy through [facility] on March 19, 2020. EGD showed an irregular Z-line, which was biopsied, small hiatal hernia, normal-appearing stomach, normal-appearing duodenum. I do not have the actual pathology report, but a letter from the physician who did the EGD showed biopsies of the small intestine and stomach were normal. Biopsies of the junction between the esophagus and stomach showed changes consistent with reflux esophagitis. At this point, she was placed on the omeprazole 20 mg b.i.d. and was instructed to stop eating spicy fluids/acidic foods. This has not made a change in her symptoms.The pain is described as above the belly button, and under the ribs on either side, it can be throughout the upper abdomen. It can be throughout the whole abdomen, this just depends. It is a 5/10 most of the time, but can get up to a 10/10. It is present on a daily basis, and is fairly constant, but the intensity varies. Eating does not affect the pain. Bowel movements do not affect the pain.She has not had a solid stool in 7 months. The stools are very mushy and are described as slop. On a good day, she may have 3, on a bad day up to 6. There is some bright red blood, which she assumes is from hemorrhoid, on occasion. She has a significant amount of gas and bloating, intermittent nausea. She has tried Beano without help. She has not had any other additional tests for her symptoms other than some blood work. CBC with differential, March 07, 2020 showed a normal CBC, WBC 8.1, hemoglobin 12.4, ESR 18, tTG-IgA less than 2, BMP normal, total bilirubin 0.5, AST 24, ALT 14, alkaline phosphatase 88, lipase 131, CRP less than 0.5.Last colonoscopy was in 2014, polyps were found. She was told to have a repeat colonoscopy in 3 to 5 years.PAST MEDICAL HISTORYIncludes thyroid disease, PCOS, section, total hysterectomy, appendectomy.FAMILY HISTORYFamily history of colon cancer in her father, diagnosed at age 53; grandmother, diagnosed in her 70s. Gallbladder disease in her brother.SOCIAL HISTORYThe patient is a current smoker. Functional Status Date Functional Assessmen t No Information Instructions Date Instruction Additional Infor kaleb -Increase Protonix 4 0mg to twice a day before breakfast and dinner-Stool test to rule out infection-Ultrasound of gallbladder -Continue the probiotic as that seems to be helping -Start a fiber supplement either through the company that you are using or over the counter, such as Citrucel or Metamucil-If the addition of fiber does not help and infection has been ruled out, possible trial of Xifaxan next (antibiotic for IBS-D/SIBO aka small intestinal bacterial overgrowth)-Lets follow up after the ultrasound and stool test are complete Related to Change in bowel habits Diverticulosis/Diverticulitis Re lated to Diverticulosis of colon Colon Cancer Prevention Related to Diverticulosis of colon Hemorrhoids Related to Diver ticulosis of colon High Fiber Diet Related to Diver ticulosis of colon -Start Protonix 40mg once a day on an empty stomach in the morning -Stool test to rule out infection-CT scan to evaluate upper abdominal organs/small intestine/colon-Colonoscopy for screening and to evaluate the colon-OK to use Imodium or Pepto-Bismol as needed if you do not have an infection-Try Gas X for gas, you could try IBgard (peppermint oil capsules, stop if it makes heartburn worse)-Follow up after the above workup is complete Related to Heartburn Assessments Type Assessment Date No Information Patient Care Teams Name Effective Dates (start - stop) Status Members No Information
--- OUTSIDE RECORDS SUMMARY | 2020-07-18 09:47 | XMS_ITS | Continuity of Care Document ---
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 [address], [id number], [place]. tel:[phone] Established Level 3 or 15-24 min [facility], [address] [address], [place], [id number], [place] tel:[phone] [facility] GI Symptoms or Concerns (chief complaint) Change in bowel habitsDiarrhea , unspecifiedHea rtburnUpper abdominal pain 0 Elias OZUNA Adela. [address], [id number], [place]. tel:[phone] Referring Provider: Vladimir GOMEZ, [address] [place], [address]. tel:[phone] [facility], [address] [address], [place], [id number], [place] tel:[phone] [facility] Diarrhea, unspecified typeFamily history of colon cancer in fatherInternal hemorrhoidsDiv erticulosis of colonFamily history of colonic polypsUnspecif ied abdominal painFamily history of malignant neoplasm of digestive organsDiarrhea , unspecified Nov- 0 0 No Information Referring Provider: Vladimir GOMEZ, [address], [place], [address]. tel:[phone] New Level 4 or 45-59 min [facility] [place], [address] [address], [place], [id number], [place] tel:[phone] [facility] GI Symptoms or Concerns (chief complaint) HeartburnUpper abdominal painChange in bowel habitsFrequent stoolsHx of colonic polyps 0 Elias Chapman. [address] [facility], [address], [id number], [place]. tel:[phone] Referring Provider: Vladimir GOMEZ, [address] [place], [address]. tel:[phone] [facility], [address] [address], [place], [id number], tel:[phone] No Information Apr- 0 No Information Referring Provider: Kane Domingo MD, [address] [place], [address]. tel:[phone] Family History Family Member Type Diagnosis Age [...] papilloma virus vaccin e, quadrivalent administered Note: [employer] bi-direct ional interface ; Source: Other Registry tetanus and diphtheria toxoi ds, adsorbed, preservative free, for adult use (5 Lf of tetanus toxoid and 2 Lf of diphtheria toxoid) administered Note: [employer] bi-direct ional interface ; Source: Other Registry human papilloma virus vaccin e, quadrivalent administered Note: [employer] bi-direct ional interface ; Source: Other Registry Engerix-B administered Note: [employer] bi-d irectional interface ; Source: Other Registry diphtheria, tetanus toxoids and pertussis vaccine administered Note: [employer] bi-direct ional interface ; Source: Other Registry diphtheria, tetanus toxoids and pertussis vaccine administered Note: [employer] bi-direct ional interface ; Source: Other Registry diphtheria, tetanus toxoids and pertussis vaccine administered Note: [employer] bi-direct ional interface ; Source: Other Registry diphtheria, tetanus toxoids and pertussis vaccine administered Note: [employer] bi-direct ional interface ; Source: Other Registry Payers Payer name Insurance type Covered libertarian ID Authoriza tion(s) No Information Social History [...] nausea. She is seen via [facility] appointment. Verbal consent was obtained [...] last visit, she had an EGD through [facility] on March 19, 2020, which showed an [...] Domingo. She is seen via [facility] clinic appointment. Verbal consent was obtained prior to our discussion.The patient began to experience symptoms of abdominal pain, persistent reflux, change in bowel habits, 6 to 7 months ago. She has had reflux symptoms for years. She has been on omeprazole 20 mg b.i.d. without any improvement. She had an upper endoscopy through [facility] on March 19, 2020. EGD showed [...]
--- OUTSIDE RECORDS SUMMARY | 2025-03-11 20:23 | XMS_ITS | Clinical Summary ---
Author Organization [facility] Address [address] [place] [address] Care Team Providers Care Electric Power Line Repairer Name Role Phone Kane Domingo MD Primary Care Provider [phone] Allergies Active Allergy Reactions Criticality Noted Date Comments Hydrocodone-Acetaminophen Anxiety,Diffic ulty breathing,Hives,Itching,River h High 09/05/2019 Vicodin Medications clonazePAM (KLONOPIN) 0.5 mg oral tablet Take 1 tablet (0.5 mg) by mouth once a day as needed. Active WEGOVY 2.4 mg/0.75 mL SubQ pen injector Every other week on Fridays10/12/2022 Active ubrogepant 100 mg oral Tab Take 100 mg by mouth once a day as needed. 04/16/2022 Active venlafaxine ER (EFFEXOR XR) 225 mg oral extended release tablet 24 HR TAKE 1 TABLET BY MOUTH ONCE DAILY FOR ANXIETY Active methocarbamoL (ROBAXIN) 750 mg oral tablet Take 1 tablet (750 mg) by mouth every 6 (six) hours. 40 tablet 05/13/2023 1:31 PM CDT 05/13/2023 Active senna (SENOKOT) 8.6 mg oral tablet Take 2 tablets (17.2 mg) by mouth twice a day as needed. 20 tablet 05/13/2023 1:31 PM CDT 05/13/2023 Active diazePAM (VALIUM) 2 mg oral tablet Take 1 tablet (2 mg) by mouth twice a day as needed. 6 tablet 05/13/2023 1:31 PM CDT 05/13/2023 Active ondansetron (ZOFRAN) 4 mg oral ODT Dissolve 1 tablet (4 mg) in mouth every 8 (eight) hours as needed. 15 tablet 05/13/2023 1:31 PM CDT 05/13/2023 Active cephalexin (KEFLEX) 500 mg oral capsule Take 1 capsule (500 mg) by mouth four times a day. 28 capsule 05/19/2023 Active Active Problems Problem Noted Date Diagnosed Date [place] hump 02/22/2023 Bunion of great toe of right foot 02/22/2023 Chiari malformation type I 02/22/2023 Cough 02/22/2023 Fibromyalgia 02/22/2023 Hemiplegic migraine 02/22/2023 Laryngitis 02/22/2023 Myalgia due to viral infection 02/22/2023 Obesity 02/22/2023 Painful lumpy left breast 02/22/2023 Paresthesia of right arm and leg 02/22/2023 Polycystic ovaries 02/22/2023 Progressive focal motor weakness 02/22/2023 Right-sided chest pain 02/22/2023 Severe anxiety 02/22/2023 Thyroid nodule 02/22/2023 Viral infection 02/22/2023 Social History Tobacco Use Types Packs/Day Years Used Date Smoking Tobacco: Every Day Cigarettes 0.5 20 Smokeless Tobacco: Never Tobacco Cessation:Ready to Q uit: No; Counseling Given: Yes Alcohol Use Standard Drinks/Week Comments Yes 0 (1 standard drink = 0.6 oz pur e alcohol) 0-1 drinks/week Comments No Sex and Gender Information Value Date Recorded Sex Assigned at Not on file Legal Sex Female 11:07 AM CDT Gender Identity Not on file Sexual Orientation Not on file Last Filed Vital Signs Vital Sign Reading Time Taken Comments Blood Pressure 113/74 05/13/2023 11:32 AM CDT Pulse 88 05/13/2023 11:32 AM CDT Temperature 36.8 C (98.2 F) 05/13/2023 11:32 AM CDT Respiratory Rate 16 05/13/2023 11:32 AM CDT Oxygen Saturation 97% 05/13/2023 11:32 AM CDT Inhaled Oxygen Concentration - - Weight 75.8 kg (167 lb) 08/05/2023 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 Height 154.9 cm (5' 1) 08/05/2023 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 Body Mass Index 31.55 08/05/2023 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 Plan of Treatment Health Maintenance Due Date Last Done Comments Hepatitis C Screening 1985 Pap Smear 1985 Anxiety Follow-Up (REBECCA-7) 1986 Depression Assessment (PHQ-2) 1986 Pneumococcal Vaccine (1 of 2 - PCV) 2004 COVID-19 Vaccine (1 - season) 2024 Influenza Vaccine (#1) 2025 , 06/26/2019, 05/10/2018, Additional history exists Adult Tetanus Booster 10/14/2027 10/13/2017 , 03/09/2016, 11/20/2013, Additional history exists RSV Vaccines (1 - 1-dose 75+ series) 2060 HPV Vaccine Completed 12/27/2008, 06/11, 12/10/2006 Meningococcal B Vaccine Aged Out No l onger eligible based on patient's age to complete this topic Medical Devices Implanted Type Area Parlor Chaperone Device Identifier Shelf Expiration Date Model / Serial / Lot Suturable Duraflex 6x8cm - [id number] Implanted:Qty : 1 on 05/10/2023 by Cristofer Hilliard MD at [facility] Dura/tut oplast N/A: Spine Cervical [employer] 09/09/2027 [id number] / [id number] / [id number] Insurance MEDICAID [place] BCBS OUT OF STATE COMMERCIAL [facility] OUT OF STATE COMMERCIAL MEDICAID [place] Advance Directives For more information, please contact: [phone] * Full Code (Latest Code Status on File) Date Activated Date Inactivated Comments 05/10/2023 10:55 AM 05/10/2023 4:45 PM Question Answer Comments How was code status determined? Physician Dhara ined to confirm in preop Care Teams Electric Power Line Repairer Relationship Specialty Start Date End Date Kane Domnigo MD [address] [place] [address] PCP - General Family Medicine 02/15/23
[2025-03-11 20:32] VITALS: BP 99/63; PULSE 73; RESP 16; TEMP 36.4; O2SAT 96; BMI 28.3
--- NOTE | 2025-03-11 20:36 | CRLHL7_ITS ---
For Patients: As a result of the Cures Act, medical imaging exams and procedure reports are released immediately into your electronic medical record. You may view this report before your referring provider. If you have questions, please contact your health care provider. Indication: Trauma. Technique: Left ankle, 3 views. Comparison: None. Findings/Impression: Bones: Alignment is normal. No displaced fractures or bone lesions. Joint spaces: Unremarkable. Soft tissues: Unremarkable. Dictated by Chava Roque MD @ 03/11/2025 9:19:11 PM (Electronically Signed)
--- NOTE | 2025-03-11 21:01 | ED_ITS ---
HPI - Extremity Injury (Lower) General Date Seen: 03/11/25 Chief Complaint: Extremity Pain/Injury, Lower Stated Complaint: Left ankle injury Time Seen by Provider: 03/11/25 20:28 Source: patient Mode of arrival: wheelchair Limitations: no limitations History of Present Illness HPI Narrative: Patient is a 39-year-old female presenting for left ankle pain. States around 18:00 she was trying to slide on a slip and slide in her left foot got caught underneath her leg given caught onto the slip and slide. She felt her foot inverted and she heard a pop and now has pain to the lateral malleolus. Has not been able to walk on it due to the pain. Denies any numbness to the foot but does have pain with moving the foot. Denies any other injuries. Took ibuprofen at 18:00 without relief. No other concerns noted. Related Data Home Medications ?Medication ?Instructions ?Recorded ?Confirmed c-Semaglutide 03/11/25 phentermine 37.5 mg tablet 56.25 mg PO DAILY 03/11/25 03/11/25 Previous Rx's ?Medication ?Instructions ?Recorded clonazepam 0.5 mg tablet 0.5 mg PO QDAY PRN anxiety # 20 tabs 11/05/22 venlafaxine 75 mg capsule,extended 75 mg PO QDAY #90 c aps 10/25/24 release 24 hr venlafaxine 75 mg capsule,extended 75 mg PO QDAY #90 c aps 10/25/24 release 24 hr Allergies Allergy/AdvReac Type Severity Reaction Status Date / Time acetaminophen (From Vicodin) Allergy itching/hiv Verified 10/25/24 09:46 es hydrocodone (From Vicodin) Allergy itching/hiv Verified 10/25/24 09:46 es Review of Systems Narrative: Pertinent systems reviewed and were negative unless stated in HPI PFSH PFSH Medical History Thumb dislocation ?S63.106A - Unspecified dislocation of unspecified thumb, initial encounter (ICD-10) Chiari malformation type I ?G93.5 - Compression of brain (ICD-10) Hemiplegic migraine ?G43.409 - Hemiplegic migraine, not intractable, without status migrainosus (ICD-10) Fibromyalgia ?M79.7 - Fibromyalgia (ICD-10) Unilateral weakness ?R53.1 - Weakness (ICD-10) Weakness ?R53.1 - Weakness (ICD-10) History of thyroid nodule ?Z86.39 - Personal history of other endocrine, nutritional and metabolic disease (ICD-10) History of hysterosalpingogram ?Z98.890 - Other specified postprocedural states (ICD-10) Surgical History History of neck surgery ?Z98.890 - Other specified postprocedural states (ICD-10) History of bunionectomy (09/2019) ?Z98.890 - Other specified postprocedural states (ICD-10) Status post delivery (12/15/17) ?Z98.891 - History of uterine scar from previous surgery (ICD-10) S/P laparoscopic hysterectomy (09/13/18) ?Z90.710 - Acquired absence of both cervix and uterus (ICD-10) History of laparoscopy (2014) ?Z98.890 - Other specified postprocedural states (ICD-10) History of section (05/05/16) ?Z98.891 - History of uterine scar from previous surgery (ICD-10) History of appendectomy ?Z90.49 - Acquired absence of other specified parts of digestive tract (ICD- 10) Family History Father Colon cancer, Onset Age: 50 Fibromyalgia Family/Other Diabetes Paternal Grandmother Fibromyalgia Heart disease Uncle Fibromyalgia Paternal Grandfather Stroke Other Thyroid disease Social History Narrative: Exercises three times per week Non-smoker- quit 2016, hx 10 pack years Sig other, retail commission sales associate, 2 kids Social drinker- currently none What is your current living situation?: I presently have a place to live Problems where you live: no known problems In the past 12 months, utilities in danger of being shut off: no In past 12 months, lack of transportation kept you from medical appts, meetings, work, or getting things needed for daily living: no In the past 12 mos, have been you worried that your food would run out before you had money to buy more?: never true In the past 12 mos, the food you bought just didn't last and you didn't have money to buy more?: never true Smoking Status: Current every day smoker What tobacco products do you use: cigarettes Do you use any of these nicotine containing products: None Second hand tobacco smoke exposure: Yes How often do you have a drink containing alcohol: 2-4 times a month How many standard drinks containing alcohol do you have on a typical day: 1 or 2 How often do you have six or more drinks on one occasion: Never AUDIT-C Alcohol total score: 2 Non-prescribed substance use: marijuana (any form) How often does anyone, including family, friends and others, physically hurt you : never How often does anyone, including family, friends and others, insult or talk down to you: never How often does anyone, including family, friends and others, threaten you with harm: never How often does anyone, including family, friends and others, scream or curse at you: never service: No Exam Narrative: Exam Narrative: Const: Well-nourished, Well-developed, in mild distress Eyes: PERRL, no conjunctival injection, and symmetrical lids HENT: Atraumatic external nose and ears. Moist mucous membranes. MSK: Swelling noted to the left lateral malleolus with tenderness to the superior aspect. Obvious swelling in this area noted also. No tenderness noted to the rest of the left lower extremity. CVS: Dorsalis pedis pulse +2 bilaterally Skin: Warm, Dry. No rashes or lesions. Neuro: Normal Muscle tone, No focal neurological deficits. Psych: Awake, Alert, & Oriented x3. Appropriate mood and affect. Const: Vital Signs, click to edit/add: Vital Signs - 24 hr 03/11/25 20:32 Temperature 97.6 F Pulse Rate [Pulse Oximeter] 73 Respiratory Rate 16 Blood Pressure [Ri ght Upper Arm] 99/63 Pulse Oximetry 96 Oxygen Delivery Me thod Room Air Course Vital Signs Vital signs: Initial Vital Signs Temperature 97.6 F 03/11/25 20:32 Temperature Source Temporal Artery Scan 03/11/25 20:32 Pulse Rate 73 03/11/25 20:32 Respiratory Rate 16 03/11/25 20:32 Blood Pressure 99/63 03/11/25 20:32 Blood Pressure Mean 75 03/11/25 20:32 Blood Pressure Position Sitting 03/11/25 20:32 Pulse Oximetry 96 03/11/25 20:32 Oxygen Delivery Method Room Air 03/11/25 20:32 Vital Signs Temperature 97.6 F 03/11/25 20:32 Pulse Rate 73 03/11/25 20:32 Respiratory Rate 16 03/11/25 20:32 Blood Pressure 99/63 03/11/25 20:32 Pulse Oximetry 96 03/11/25 20:32 Oxygen Delivery Method Room Air 03/11/25 20:32 Temperature 97.6 F 03/11/25 20:32 Pulse Rate 73 03/11/25 20:32 Respiratory Rate 16 03/11/25 20:32 Blood Pressure 99/63 03/11/25 20:32 Pulse Oximetry 96 03/11/25 20:32 Oxygen Delivery Method Room Air 03/11/25 20:32 Medications Administered Medications: Generic Name Dose Route Start Last Admin Trade Name Freq PRN Reason Stop Dose Admin Oxycodone/Acetaminophen 1 tab 03/11/25 21:18 03/11/25 21:27 Oxycodone/Apap 5-325 Tablet PO 03/11/25 21:19 1 tab ONCE ONE Administration MDM - Extremity Injury (Lower) MDM Narrative Medical decision making narrative: Patient is a 39-year-old female presenting for left ankle pain. This seems likely a sprain but will do an x-ray to make sure there were no underlying fractures. No other injuries noted. She is neurovascular intact. X-ray returned showing no acute fractures. This is likely an ankle sprain. She states she has an Joshua wrap and crutches at home and will use that when she gets there. She is safe for discharge and is agreeable to this plan Imaging Data Left ankle x-ray: Attestation: I have reviewed the pertinent imaging results. Radiologist's impression: Bones: Alignment is normal. No displaced fractures or bone lesions. Joint spaces: Unremarkable. Soft tissues: Unremarkable. Dictated by Chava Roque MD @ 03/11/2025 9:19:11 PM Discharge Plan Discharge Clinical Impression: Left ankle sprain Qualifiers: Encounter type: initial encounter Involved ligament of ankle: unspecified ligament Qualified Code(s): S93.402A - Sprain of unspecified ligament of left ankle, initial encounter Patient Disposition: Home, Self-Care Condition: Stable Instructions: Ankle Sprain (ED) Additional Instructions: Take Tylenol ibuprofen as needed for pain. Use crutches as needed he can weightbear as tolerated. Can use an Joshua wrap or ankle brace as needed for com fort Prescriptions: No Action venlafaxine 75 mg capsule,extended release 24hr 75 mg PO QDAY Qty: 90 3RF Rx Instructions: Take in addition to 150 mg capsule for total dose of 225 mg daily. venlafaxine 75 mg capsule,extended release 24hr 75 mg PO QDAY Qty: 90 3RF Rx Instructions: Take in addition to 150 mg capsule for total dose of 225 mg daily. c-Semaglutide phentermine 37.5 mg tablet 56.25 mg PO DAILY clonazepam 0.5 mg tablet 0.5 mg PO QDAY PRN (Reason: anxiety) Qty: 20 0RF Follow Up/Referrals: Kane Domingo MD [Primary Care Provider, Family Practice] Stand Alone Forms: [employer] Info Instructions
[2025-03-11] MEDS: OxyCODONE/APAP 5-325 TABLET 1 TAB PO (21:27)
[2025-03-11 21:34] VITALS: BP 108/75; PULSE 85; RESP 16
== END 2025-03-11 21:40 | disposition home or self-care (01) ==
PROVIDERS: Emergency Provider Student in an Organized Health Care Education/Training Program; PCP Family Medicine
DX: S93.402A Sprain of unspecified ligament of left ankle, initial encounter (principal)
CPT/HCPCS: 73610; 99283; A9270